=== PATIENT | male | born 1965 | race Caucasian/White ===

== ENCOUNTER → 2019-05-21 | Outpatient (CLI) | payer BC | LOC: COL.RAD 05-13 07:30 | DX: K76.0 Fatty (change of) liver, not elsewhere classified (principal) | CPT/HCPCS: Q9967 ==

== ENCOUNTER 2021-05-24 10:34 | Outpatient (CLI) | payer BC ==
[2021-05-24] VITALS (7 sets, daily range): BP systolic 115–129; BP diastolic 79–86; PULSE 81–83; TEMP 98.7
[2021-05-24] MEDS ORDERED: LIPITOR20 MG PO (11:33)
[2021-05-24] MEDS ORDERED: PRIL40 PO (11:34)
[2021-05-24] MEDS ORDERED: VASOTEC20 MG PO (11:34)
[2021-05-24] MEDS ORDERED: OSTEO-BI-FLEX 21 TAB PO (11:34)
[2021-05-24] MEDS ORDERED: CENTRUM MEN'S PO (11:35)
[2021-05-24] MEDS ORDERED: OMEGA-3 1000 MG1 CAP PO (11:36)
[2021-05-24] MEDS ORDERED: TYLENOL 325MG325 MG PO (11:36)
[2021-05-24] MEDS ORDERED: FLEXERIL 1010 MG/TAB PO (11:37)
[2021-05-24] MEDS ORDERED: MUCINEX DM 30 M1 TE1 (11:37)
[2021-05-24] MEDS ORDERED: PHARMASSURE ZIN50 MG PO (11:37)
[2021-05-24] MEDS ORDERED: VITAMIN C500 MG PO (11:38)
[2021-05-24] MEDS ORDERED: MASON NATURAL2000 IU PO (11:38)
== END 2021-05-24 12:55 | disposition home or self-care (01) ==
LOC: EUO 10:34
DX: U07.1 COVID-19 (principal); E66.9 Obesity, unspecified; I51.9 Heart disease, unspecified
CPT/HCPCS: M0245

== ENCOUNTER → 2022-03-17 | Outpatient (CLI) | payer BC ==
[~2022-03-17] MED LIST: CENTRUM MEN'S PO; DEPO-TESTOS200 MG/M1 IM; ELIQUIS 5MG PO; FLEXERIL 1010 MG/TAB PO; LIPITOR20 MG PO; MASON NATURAL2000 IU PO; MUCINEX DM 30 M1 TE1; OMEGA-3 1000 MG1 CAP PO; OSTEO-BI-FLEX 21 TAB PO; PHARMASSURE ZIN50 MG PO; PRESERVISIONLUT PO; PRIL40 PO; TYLENOL 325MG325 MG PO; VASOTEC20 MG PO; VITAMIN C500 MG PO; VITAMIN D31000 IU PO; WELLBUTRIN XL150 MG PO
[2022-03-17 10:10] LABS: BILIRUBIN,TOTAL 2.2 mg/dL (0.2-1.2); CREATININE, serum 1.18 mg/dL (0.72-1.25); POTASSIUM 4.3 mmol/L (3.5-4.5); TOTAL PROTEIN 7.7 gm/dL (6.2-8.1)
== END ==
LOC: COL.LAB 09:37
PROVIDERS: Surgery
DX: R74.01 Elevation of levels of liver transaminase levels (principal); E80.6 Other disorders of bilirubin metabolism; R10.9 Unspecified abdominal pain